=== PATIENT | male | born 1965 | race Caucasian/White ===

== ENCOUNTER 2017-04-05 23:24 | Emergency (ER) | payer MEDICAID, OTHER ==
[~2017-04-05] VITALS: Ht 170.2 cm; Wt 66.4 kg
[~2017-04-05 23:24] MED LIST: SERT50TA12 PO; SULF-168 PO
[2017-04-06 00:05] LABS: BASOPHILS % (AUTO) 0.8 % (0.0-2.0); EOSINOPHILS % (AUTO) 0.6 % (1.0-6.0); HEMATOCRIT 48.7 % (41-53); HEMOGLOBIN 15.5 g/dL (13.5-17.5); LYMPHOCYTES # (AUTO) 3.7 K/uL (1.0-4.8); LYMPHOCYTES % (AUTO) 37.9 % (22.0-44.0); MEAN CORPUSCULAR HEMOGLOBIN 28.8 pg (26.0-34.0); MEAN CORPUSCULAR HGB CONC 31.9 G/dL (31.0-37.0); MEAN CORPUSCULAR VOLUME 90 fL (80-100); MONOCYTES # (AUTO) 0.5 K/uL (0.1-1.0); MONOCYTES % (AUTO) 5.5 % (2.0-9.0); NEUTROPHILS # (AUTO) 5.4 K/uL (1.8-7.7); NEUTROPHILS % (AUTO) 55.2 % (40.0-70.0); PLATELET COUNT (AUTO) 225 K/uL (150-450); RED CELL DISTRIBUTION WIDTH 14.3 % (11.5-14.5); WHITE BLOOD COUNT (AUTO) 9.9 K/uL (4.5-11.0)
[2017-04-06 00:13] LABS: ANION GAP 12 mmol/L (8-16); CALCIUM, TOTAL 8.9 mg/dL (8.8-10.5); CARBON DIOXIDE 25 mmol/L (22-29); CHLORIDE 107 mmol/L (98-107); CREATININE 0.85 mg/dL (0.60-1.30); GLOMERULAR FILTR. RATE CALC > 60 mL/min (>60); POTASSIUM 3.7 mmol/L (3.5-5.1); SODIUM SERUM 144 mmol/L (136-145); UREA NITROGEN, BLOOD 10 mg/dL (7-18)
[2017-04-06 00:19] LABS: ALANINE AMINOTRANSFERASE 78 U/L (12-78); ALBUMIN 4.2 g/dL (3.4-5.0); ASPARTATE AMINOTRANSFERASE 60 U/L (15-37); BILIRUBIN,TOTAL 0.5 mg/dL (0.1-1.0); TOTAL PROTEIN, SERUM 9.1 g/dL (6.4-8.2)
[2017-04-06 06:14] VITALS: BP 110/70
== END 2017-04-06 06:54 | disposition home or self-care (01) ==
LOC: EMS 23:25
DX: F10.229 Alcohol dependence with intoxication, unspecified (principal); F32.9 Major depressive disorder, single episode, unspecified; F17.210 Nicotine dependence, cigarettes, uncomplicated; Y90.8 Blood alcohol level of 240 mg/100 ml or more
CPT/HCPCS: 36415; 80053; 80307; 85025; 99284; G0480

== ENCOUNTER 2017-04-06 17:15 | Emergency (ER) | payer OTHER ==
[~2017-04-06] VITALS: Ht 172.7 cm; Wt 70.5 kg
[2017-04-06 17:25] VITALS: BP 123/90
[2017-04-06 18:44] LABS: BASOPHILS % (AUTO) 0.6 % (0.0-2.0); EOSINOPHILS % (AUTO) 1.1 % (1.0-6.0); HEMATOCRIT 46.1 % (41-53); HEMOGLOBIN 14.8 g/dL (13.5-17.5); LYMPHOCYTES # (AUTO) 1.8 K/uL (1.0-4.8); LYMPHOCYTES % (AUTO) 27.8 % (22.0-44.0); MEAN CORPUSCULAR HEMOGLOBIN 29.2 pg (26.0-34.0); MEAN CORPUSCULAR HGB CONC 32.2 G/dL (31.0-37.0); MEAN CORPUSCULAR VOLUME 91 fL (80-100); MONOCYTES # (AUTO) 0.3 K/uL (0.1-1.0); MONOCYTES % (AUTO) 5.1 % (2.0-9.0); NEUTROPHILS # (AUTO) 4.2 K/uL (1.8-7.7); NEUTROPHILS % (AUTO) 65.4 % (40.0-70.0); PLATELET COUNT (AUTO) 222 K/uL (150-450); RED BLOOD CELL COUNT(AUTO) 5.09 MIL/uL (4.50-5.90); RED CELL DISTRIBUTION WIDTH 14.8 % (11.5-14.5); WHITE BLOOD COUNT (AUTO) 6.4 K/uL (4.5-11.0)
[2017-04-06 19:03] LABS: ANION GAP 12 mmol/L (8-16); CALCIUM, TOTAL 8.5 mg/dL (8.8-10.5); CARBON DIOXIDE 26 mmol/L (22-29); CHLORIDE 107 mmol/L (98-107); CREATININE 0.93 mg/dL (0.60-1.30); GLOMERULAR FILTR. RATE CALC > 60 mL/min (>60); POTASSIUM 3.5 mmol/L (3.5-5.1); SODIUM SERUM 145 mmol/L (136-145); UREA NITROGEN, BLOOD 9 mg/dL (7-18)
[2017-04-06 19:08] LABS: ALANINE AMINOTRANSFERASE 73 U/L (12-78); ASPARTATE AMINOTRANSFERASE 56 U/L (15-37); BILIRUBIN,TOTAL 0.5 mg/dL (0.1-1.0); TOTAL PROTEIN, SERUM 8.3 g/dL (6.4-8.2)
== END 2017-04-06 20:42 | disposition home or self-care (01) ==
LOC: EMS 17:20
DX: F10.229 Alcohol dependence with intoxication, unspecified (principal); F32.9 Major depressive disorder, single episode, unspecified; F17.210 Nicotine dependence, cigarettes, uncomplicated; Y90.6 Blood alcohol level of 120-199 mg/100 ml
CPT/HCPCS: 36415; 80053; 85025; 99284; G0480

== ENCOUNTER 2017-04-07 21:25 | Emergency (ER) | payer OTHER ==
[~2017-04-07] VITALS: Ht 172.7 cm; Wt 77.3 kg
[2017-04-07 21:34] VITALS: BP 121/73
== END 2017-04-08 00:30 | disposition left against medical advice (07) ==
LOC: EMS 21:30
DX: R51 Headache (principal); F17.210 Nicotine dependence, cigarettes, uncomplicated; Z53.21 Procedure and treatment not carried out due to patient leaving prior to being seen by health care provider

== ENCOUNTER 2017-04-08 09:09 | Inpatient (IN) | payer MEDICAID, OTHER ==
[~2017-04-08] VITALS: Ht 172.7 cm; Wt 66.7 kg
[2017-04-08 09:38] LABS: BASOPHILS % (AUTO) 0.9 % (0.0-2.0); EOSINOPHILS % (AUTO) 1.7 % (1.0-6.0); HEMATOCRIT 49.8 % (41-53); HEMOGLOBIN 15.7 g/dL (13.5-17.5); LYMPHOCYTES # (AUTO) 2.7 K/uL (1.0-4.8); LYMPHOCYTES % (AUTO) 37.5 % (22.0-44.0); MEAN CORPUSCULAR HEMOGLOBIN 28.6 pg (26.0-34.0); MEAN CORPUSCULAR HGB CONC 31.6 G/dL (31.0-37.0); MEAN CORPUSCULAR VOLUME 91 fL (80-100); MONOCYTES # (AUTO) 0.5 K/uL (0.1-1.0); MONOCYTES % (AUTO) 7.2 % (2.0-9.0); NEUTROPHILS # (AUTO) 3.8 K/uL (1.8-7.7); NEUTROPHILS % (AUTO) 52.7 % (40.0-70.0); PLATELET COUNT (AUTO) 239 K/uL (150-450); RED BLOOD CELL COUNT(AUTO) 5.49 MIL/uL (4.50-5.90); RED CELL DISTRIBUTION WIDTH 14.8 % (11.5-14.5); WHITE BLOOD COUNT (AUTO) 7.3 K/uL (4.5-11.0)
[2017-04-08 09:58] LABS: ANION GAP -1 mmol/L (8-16); CALCIUM, TOTAL 8.8 mg/dL (8.8-10.5); CARBON DIOXIDE 27 mmol/L (22-29); CHLORIDE 103 mmol/L (98-107); CREATININE 0.72 mg/dL (0.60-1.30); GLOMERULAR FILTR. RATE CALC > 60 mL/min (>60); POTASSIUM 3.4 mmol/L (3.5-5.1); SODIUM SERUM 129 mmol/L (136-145); UREA NITROGEN, BLOOD 9 mg/dL (7-18)
[2017-04-08 10:03] LABS: ALANINE AMINOTRANSFERASE 68 U/L (12-78); ALBUMIN 4.1 g/dL (3.4-5.0); ASPARTATE AMINOTRANSFERASE 49 U/L (15-37); BILIRUBIN,TOTAL 0.4 mg/dL (0.1-1.0); TOTAL PROTEIN, SERUM 8.7 g/dL (6.4-8.2)
[2017-04-08] MEDS ORDERED: SODIUM CHLORIDE 1 GM TABLET PO ONE (11:15)
[2017-04-08] MEDS ORDERED: LORazepam 2 MG TABLET PO PRN (11:45)
[2017-04-08] MEDS ORDERED: HALOPERIDOL 5 MG TABLET PO PRN (11:45)
[2017-04-08] MEDS ORDERED: ZOLPIDEM TARTRATE 10 MG TABLET PO PRN (11:45)
[2017-04-08] MEDS ORDERED: ChlordiazePOXIDE HCL 25 MG CAPSULE PO PRN (12:30)
[2017-04-08 14:58] LABS: ANION GAP 7 mmol/L (8-16); CALCIUM, TOTAL 8.3 mg/dL (8.8-10.5); CARBON DIOXIDE 25 mmol/L (22-29); CHLORIDE 108 mmol/L (98-107); CREATININE 0.79 mg/dL (0.60-1.30); GLOMERULAR FILTR. RATE CALC > 60 mL/min (>60); POTASSIUM 3.8 mmol/L (3.5-5.1); SODIUM SERUM 140 mmol/L (136-145); UREA NITROGEN, BLOOD 8 mg/dL (7-18)
[2017-04-08 17:00] VITALS: BP 115/67
[2017-04-08 17:10] VITALS: BP 115/67
[2017-04-08 18:00] VITALS: BP 121/70
[2017-04-08 19:00] VITALS: BP 110/65
[2017-04-08 20:00] VITALS: BP 105/64
[2017-04-09 00:28] VITALS: BP 121/81
[2017-04-09] MEDS ORDERED: PNEUMOCOCCAL VACCINE POLYVALENT 0.5 ML VIAL [PPSV23] IM ONE (04:45)
[2017-04-09 05:33] VITALS: BP_SYST 126; BP_DIAS 78; BP_DIAS 80
[2017-04-09] MEDS ORDERED: ChlordiazePOXIDE HCL 25 MG CAPSULE PO PRN (07:00)
[2017-04-09 08:01] VITALS: BP 107/59
[2017-04-09] MEDS ORDERED: ChlordiazePOXIDE HCL 25 MG CAPSULE PO SCH (09:00)
[2017-04-09] MEDS ORDERED: LORazepam 2 MG TABLET PO PRN (10:45)
[2017-04-09 11:45] VITALS: BP 104/62
[2017-04-09 16:13] VITALS: BP 116/70
[2017-04-10 00:15] VITALS: BP 118/76
[2017-04-10 00:45] VITALS: BP 118/76
[2017-04-10] MEDS ORDERED: LORazepam 2 MG TABLET PO PRN (07:00)
[2017-04-10] MEDS: LORazepam 2 MG TABLET PO SCH ×2 (08:56→12:04)
[2017-04-10 09:00] VITALS: BP 127/86
[2017-04-10] MEDS ORDERED: SERTRALINE HCL 50 MG TABLET PO SCH (09:00)
[2017-04-10 10:33] VITALS: BP 141/78
[2017-04-10] MEDS ORDERED: SERT50TA12 PO (11:07)
[2017-04-11] MEDS ORDERED: ChlordiazePOXIDE HCL 10 MG CAPSULE PO PRN (07:00)
[2017-04-11] MEDS ORDERED: ChlordiazePOXIDE HCL 10 MG CAPSULE PO SCH (09:00)
[2017-04-12] MEDS ORDERED: ChlordiazePOXIDE HCL 10 MG CAPSULE PO PRN (07:00)
[2017-04-12] MEDS ORDERED: LORazepam 1 MG TABLET PO PRN (07:00)
[2017-04-12] MEDS ORDERED: LORazepam 1 MG TABLET PO SCH (09:00)
[2017-04-13] MEDS ORDERED: LORazepam 1 MG TABLET PO PRN (07:00)
== END 2017-04-10 11:45 | disposition home or self-care (01) | DRG 754 ==
LOC: EEVIPCON 09:24 → EMS 09:24 → 3EI 16:09
PROVIDERS: ADMIT Psychiatry & Neurology Child & Adolescent Psychiatry; ATTEND Psychiatry & Neurology Child & Adolescent Psychiatry
DX: F32.9 Major depressive disorder, single episode, unspecified (principal); E87.1 Hypo-osmolality and hyponatremia; F10.239 Alcohol dependence with withdrawal, unspecified; F10.229 Alcohol dependence with intoxication, unspecified; Y90.8 Blood alcohol level of 240 mg/100 ml or more; E87.6 Hypokalemia
CPT/HCPCS: 99285; G0480

== ENCOUNTER 2017-04-20 18:02 | Inpatient (IN) | payer MEDICAID, OTHER ==
[~2017-04-20] VITALS: Ht 172.7 cm; Wt 67.1 kg
[~2017-04-20 18:02] MED LIST changes: -SULF-168 PO
[2017-04-20 18:34] LABS: BASOPHILS % (AUTO) 0.8 % (0.0-2.0); HEMATOCRIT 46.8 % (41-53); HEMOGLOBIN 15.5 g/dL (13.5-17.5); LYMPHOCYTES # (AUTO) 2.4 K/uL (1.0-4.8); LYMPHOCYTES % (AUTO) 41.3 % (22.0-44.0); MEAN CORPUSCULAR HEMOGLOBIN 30.2 pg (26.0-34.0); MEAN CORPUSCULAR HGB CONC 33.2 G/dL (31.0-37.0); MEAN CORPUSCULAR VOLUME 91 fL (80-100); MONOCYTES # (AUTO) 0.4 K/uL (0.1-1.0); MONOCYTES % (AUTO) 7.3 % (2.0-9.0); NEUTROPHILS # (AUTO) 2.9 K/uL (1.8-7.7); NEUTROPHILS % (AUTO) 49.6 % (40.0-70.0); PLATELET COUNT (AUTO) 257 K/uL (150-450); RED BLOOD CELL COUNT(AUTO) 5.15 MIL/uL (4.50-5.90); RED CELL DISTRIBUTION WIDTH 16.7 % (11.5-14.5); WHITE BLOOD COUNT (AUTO) 5.8 K/uL (4.5-11.0)
[2017-04-20 18:44] LABS: ANION GAP 14 mmol/L (8-16); CALCIUM, TOTAL 8.6 mg/dL (8.8-10.5); CARBON DIOXIDE 25 mmol/L (22-29); CHLORIDE 101 mmol/L (98-107); GLOMERULAR FILTR. RATE CALC > 60 mL/min (>60); POTASSIUM 3.9 mmol/L (3.5-5.1); SODIUM SERUM 140 mmol/L (136-145); UREA NITROGEN, BLOOD 9 mg/dL (7-18)
[2017-04-20 18:49] LABS: ALANINE AMINOTRANSFERASE 173 U/L (12-78); ALBUMIN 3.8 g/dL (3.4-5.0); ASPARTATE AMINOTRANSFERASE 222 U/L (15-37); BILIRUBIN,TOTAL 0.4 mg/dL (0.1-1.0); TOTAL PROTEIN, SERUM 8.5 g/dL (6.4-8.2)
[2017-04-20] MEDS ORDERED: ZOLPIDEM TARTRATE 10 MG TABLET PO PRN (21:15)
[2017-04-20 21:21] VITALS: BP 137/89
[2017-04-21 00:50] LABS: APPEARANCE,URINE CLEAR (CLEAR); GLUCOSE, URINE (UA) NEGATIVE (NEGATIVE); KETONES,URINE NEGATIVE (NEGATIVE); LEUKOCYTE ESTERASE ,URINE NEGATIVE (NEGATIVE); OCCULT BLOOD,URINE NEGATIVE (NEGATIVE); PROTEIN,URINE NEGATIVE (NEGATIVE)
[2017-04-21 00:51] LABS: ADD UA MICROSCOPIC NO
[2017-04-21] MEDS: LORazepam 2 MG TABLET PO PRN ×3 (03:29→17:36)
[2017-04-21] MEDS ORDERED: PNEUMOCOCCAL VACCINE POLYVALENT 0.5 ML VIAL [PPSV23] IM ONE (04:30)
[2017-04-21 04:49] VITALS: BP 137/93
[2017-04-21] MEDS: HALOPERIDOL 5 MG TABLET PO PRN ×2 (08:14→17:36)
[2017-04-21 08:30] VITALS: BP 128/86
[2017-04-21] MEDS ORDERED: ONDANSETRON HCL 4 MG TABLET PO PRN (10:45)
[2017-04-21] MEDS ORDERED: CloNIDine HCL 0.1 MG TABLET PO PRN (10:45)
[2017-04-21 17:00] VITALS: BP 125/76
[2017-04-21 21:00] VITALS: BP 110/72
[2017-04-21] MEDS ORDERED: LORazepam 2 MG TABLET PO PRN (21:00)
[2017-04-21 22:03] VITALS: BP 112/70
[2017-04-21] MEDS: MIRTAZAPINE 15 MG TABLET PO SCH (22:30)
[2017-04-21 23:09] VITALS: BP 115/73
[2017-04-22 00:01] VITALS: BP 129/81
[2017-04-22 05:45] VITALS: BP 136/87
[2017-04-22] MEDS ORDERED: LORazepam 2 MG TABLET PO PRN (07:00)
[2017-04-22 09:00] VITALS: BP 117/71
[2017-04-22] MEDS: PANTOPRAZOLE SODIUM 40 MG DR TABLET PO SCH (09:01)
[2017-04-22] MEDS: LORazepam 2 MG TABLET PO SCH ×4 (09:01→20:09)
[2017-04-22 13:00] VITALS: BP 128/79
[2017-04-22] MEDS: HALOPERIDOL 5 MG TABLET PO PRN (14:45)
[2017-04-22 18:22] VITALS: BP 120/75
[2017-04-22] MEDS: MIRTAZAPINE 15 MG TABLET PO SCH (20:09)
[2017-04-23 08:00] VITALS: BP 132/75
[2017-04-23] MEDS: PANTOPRAZOLE SODIUM 40 MG DR TABLET PO SCH (09:40)
[2017-04-23] MEDS: LORazepam 2 MG TABLET PO SCH ×4 (09:40→20:12)
[2017-04-23] MEDS ORDERED: MIRT15 PO (19:46)
[2017-04-23] MEDS: MIRTAZAPINE 15 MG TABLET PO SCH (20:12)
[2017-04-24] MEDS ORDERED: LORazepam 1 MG TABLET PO PRN (07:00)
[2017-04-24] MEDS ORDERED: LORazepam 1 MG TABLET PO SCH (09:00)
[2017-04-25] MEDS ORDERED: LORazepam 1 MG TABLET PO PRN (07:00)
== END 2017-04-23 21:15 | disposition home or self-care (01) | DRG 751 ==
LOC: EMS 18:03 → 3EI 21:45
PROVIDERS: ADMIT Psychiatry & Neurology Child & Adolescent Psychiatry; ATTEND Psychiatry & Neurology Child & Adolescent Psychiatry
DX: F33.2 Major depressive disorder, recurrent severe without psychotic features (principal); R45.851 Suicidal ideations; K70.10 Alcoholic hepatitis without ascites; I10 Essential (primary) hypertension; F10.229 Alcohol dependence with intoxication, unspecified; K76.9 Liver disease, unspecified; F15.10 Other stimulant abuse, uncomplicated; F12.90 Cannabis use, unspecified, uncomplicated; F17.210 Nicotine dependence, cigarettes, uncomplicated; Z28.21 Immunization not carried out because of patient refusal; Z91.5 Personal history of self-harm; Z59.0 Homelessness; Z82.49 Family history of ischemic heart disease and other diseases of the circulatory system; Z82.5 Family history of asthma and other chronic lower respiratory diseases; Z79.899 Other long term (current) drug therapy
CPT/HCPCS: 87081; 99285; G0480

== ENCOUNTER 2017-05-04 19:20 | Emergency (ER) | payer MEDICAID, OTHER ==
[~2017-05-04] VITALS: Ht 167.6 cm; Wt 61.4 kg
[~2017-05-04 19:20] MED LIST changes: +MIRT15 PO; -SERT50TA12 PO
[2017-05-04 19:32] LABS: BASOPHILS % (AUTO) 0.5 % (0.0-2.0); EOSINOPHILS % (AUTO) 0.3 % (1.0-6.0); HEMATOCRIT 46.6 % (41-53); HEMOGLOBIN 15.6 g/dL (13.5-17.5); LYMPHOCYTES # (AUTO) 1.7 K/uL (1.0-4.8); LYMPHOCYTES % (AUTO) 18.8 % (22.0-44.0); MEAN CORPUSCULAR HEMOGLOBIN 30.8 pg (26.0-34.0); MEAN CORPUSCULAR HGB CONC 33.6 G/dL (31.0-37.0); MEAN CORPUSCULAR VOLUME 92 fL (80-100); MONOCYTES # (AUTO) 0.4 K/uL (0.1-1.0); MONOCYTES % (AUTO) 4.1 % (2.0-9.0); NEUTROPHILS # (AUTO) 6.7 K/uL (1.8-7.7); NEUTROPHILS % (AUTO) 76.3 % (40.0-70.0); PLATELET COUNT (AUTO) 176 K/uL (150-450); RED BLOOD CELL COUNT(AUTO) 5.08 MIL/uL (4.50-5.90); RED CELL DISTRIBUTION WIDTH 17.3 % (11.5-14.5); WHITE BLOOD COUNT (AUTO) 8.8 K/uL (4.5-11.0)
[2017-05-04 19:45] LABS: ANION GAP 13 mmol/L (8-16); CALCIUM, TOTAL 8.8 mg/dL (8.8-10.5); CARBON DIOXIDE 24 mmol/L (22-29); CHLORIDE 102 mmol/L (98-107); CREATININE 0.74 mg/dL (0.60-1.30); GLOMERULAR FILTR. RATE CALC > 60 mL/min (>60); POTASSIUM 3.5 mmol/L (3.5-5.1); SODIUM SERUM 139 mmol/L (136-145); UREA NITROGEN, BLOOD 7 mg/dL (7-18)
[2017-05-04 19:50] LABS: ALANINE AMINOTRANSFERASE 216 U/L (12-78); ALBUMIN 3.9 g/dL (3.4-5.0); ASPARTATE AMINOTRANSFERASE 220 U/L (15-37); BILIRUBIN,TOTAL 0.5 mg/dL (0.1-1.0); TOTAL PROTEIN, SERUM 8.4 g/dL (6.4-8.2)
[2017-05-04 20:39] LABS: RBC MORPHOLOGY COMMENT NORMAL RBC MORPH
[2017-05-05 05:33] VITALS: BP 132/84
== END 2017-05-05 06:21 | disposition home or self-care (01) ==
LOC: EMS 19:24
DX: F10.229 Alcohol dependence with intoxication, unspecified (principal); F32.9 Major depressive disorder, single episode, unspecified; F17.210 Nicotine dependence, cigarettes, uncomplicated; Y90.8 Blood alcohol level of 240 mg/100 ml or more
CPT/HCPCS: 36415; 80053; 80307; 85025; 99284; 99406; G0480

== ENCOUNTER 2019-01-31 15:01 | Inpatient (IN) | payer MEDICAID, OTHER ==
[~2019-01-31] VITALS: Ht 170.2 cm; Wt 61.2 kg
[2019-01-31] MEDS ORDERED: OXYC15TA2 PO (15:26)
[2019-01-31] MEDS ORDERED: IBUPROFEN 600 MG TABLET PO ONE (15:45)
[2019-01-31] MEDS ORDERED: LORazepam 2 MG TABLET PO ONE (15:45)
[2019-01-31 15:58] LABS: BASOPHILS % (AUTO) 0.6 % (0.0-2.0); EOSINOPHILS % (AUTO) 0.6 % (1.0-6.0); HEMATOCRIT 47.7 % (41-53); HEMOGLOBIN 16.3 g/dL (13.5-17.5); LYMPHOCYTES # (AUTO) 2.2 K/uL (1.0-4.8); MEAN CORPUSCULAR HEMOGLOBIN 29.7 pg (26.0-34.0); MEAN CORPUSCULAR HGB CONC 34.1 G/dL (31.0-37.0); MEAN CORPUSCULAR VOLUME 87 fL (80-100); MONOCYTES # (AUTO) 0.6 K/uL (0.1-1.0); MONOCYTES % (AUTO) 7.8 % (2.0-9.0); NEUTROPHILS # (AUTO) 4.4 K/uL (1.8-7.7); PLATELET COUNT (AUTO) 247 K/uL (150-450); RED BLOOD CELL COUNT(AUTO) 5.48 MIL/uL (4.50-5.90); RED CELL DISTRIBUTION WIDTH 13.3 % (11.5-14.5)
[2019-01-31 16:17] LABS: ANION GAP 17 mmol/L (8-16); CALCIUM, TOTAL 9.5 mg/dL (8.8-10.5); CARBON DIOXIDE 23 mmol/L (22-29); CHLORIDE 106 mmol/L (98-107); GLOMERULAR FILTR. RATE CALC > 60 mL/min (>60); GLUCOSE,RANDOM 96 mg/dL (70-110); SODIUM SERUM 146 mmol/L (136-145); UREA NITROGEN, BLOOD 6 mg/dL (7-18)
[2019-01-31 16:22] LABS: ALANINE AMINOTRANSFERASE 72 U/L (12-78); ALBUMIN 4.1 g/dL (3.4-5.0); ALKALINE PHOSPHATASE 115 U/L (46-116); ASPARTATE AMINOTRANSFERASE 43 U/L (15-37); BILIRUBIN,TOTAL 0.7 mg/dL (0.1-1.0)
[2019-01-31] MEDS ORDERED: HydrOXYzine PAMOATE 50 MG CAPSULE PO PRN (17:30)
[2019-01-31] MEDS ORDERED: DIAZEPAM 10 MG TABLET PO PRN (17:30)
[2019-01-31] MEDS ORDERED: LOPERAMIDE HCL 2 MG CAPSULE PO PRN ×2 (17:30)
[2019-01-31] MEDS ORDERED: CYANOCOBALAMIN 1,000 MCG/ML VIAL IM ONE ×2 (17:30)
[2019-01-31] MEDS ORDERED: GuaiFENesin/D-METHORPHAN [SUGAR-FREE] 200-20MG/10 ML SYRUP UDCUP PO PRN ×2 (17:30)
[2019-01-31] MEDS ORDERED: ZOLPIDEM TARTRATE 10 MG TABLET PO PRN (17:30)
[2019-01-31] MEDS ORDERED: THIAMINE HCL 100 MG TABLET PO SCH (20:42)
[2019-01-31 20:45] VITALS: BP 108/74
[2019-01-31] MEDS: THIAMINE HCL 100 MG TABLET PO SCH (21:23)
[2019-01-31] MEDS: HALOPERIDOL 5 MG TABLET PO PRN (21:24)
[2019-01-31 21:45] VITALS: BP 110/68
[2019-01-31] MEDS ORDERED: IBUPROFEN 600 MG TABLET PO PRN (21:45)
[2019-01-31 22:45] VITALS: BP 113/71
[2019-01-31 23:45] VITALS: BP 90/53
[2019-02-01 00:45] VITALS: BP 95/67
[2019-02-01 04:45] VITALS: BP 122/76
[2019-02-01] MEDS ORDERED: MULTIVITAMINS WITH MINERALS, THERAPEUTIC TABLET PO SCH (09:00)
[2019-02-01] MEDS ORDERED: FOLIC ACID 1 MG TABLET PO SCH (09:00)
[2019-02-01] MEDS: FOLIC ACID 1 MG TABLET PO SCH (10:55)
[2019-02-01] MEDS: MULTIVITAMINS WITH MINERALS, THERAPEUTIC TABLET PO SCH (10:55)
[2019-02-01] MEDS: DIAZEPAM 10 MG TABLET PO SCH ×4 (10:55→22:12)
[2019-02-01] MEDS: NICOTINE 21 MG/24 HOUR PATCH TD SCH (10:56)
[2019-02-01] MEDS: THIAMINE HCL 100 MG TABLET PO SCH ×2 (10:56→17:31)
[2019-02-01 15:00] VITALS: BP_SYST 119; BP_SYST 124; BP_DIAS 77
[2019-02-01] MEDS: MIRTAZAPINE 15 MG TABLET PO SCH (22:12)
[2019-02-02 01:08] VITALS: BP 110/65
[2019-02-02] MEDS: DIAZEPAM 10 MG TABLET PO PRN ×2 (01:16→15:18)
[2019-02-02] MEDS: DIAZEPAM 10 MG TABLET PO SCH ×4 (08:26→20:45)
[2019-02-02] MEDS: THIAMINE HCL 100 MG TABLET PO SCH ×2 (08:26→16:22)
[2019-02-02] MEDS: MULTIVITAMINS WITH MINERALS, THERAPEUTIC TABLET PO SCH (08:26)
[2019-02-02] MEDS: HALOPERIDOL 5 MG TABLET PO PRN ×2 (08:26→13:15)
[2019-02-02] MEDS: FOLIC ACID 1 MG TABLET PO SCH (08:26)
[2019-02-02] MEDS: NICOTINE 21 MG/24 HOUR PATCH TD SCH (09:51)
[2019-02-02 09:54] VITALS: BP 110/63
[2019-02-02 09:58] VITALS: BP 110/63
[2019-02-02] MEDS: MIRTAZAPINE 15 MG TABLET PO SCH (20:45)
[2019-02-03] MEDS ORDERED: DIAZEPAM 5 MG TABLET PO PRN (07:00)
[2019-02-03 09:38] VITALS: BP 100/61
[2019-02-03] MEDS: DIAZEPAM 5 MG TABLET PO SCH ×4 (10:11→20:37)
[2019-02-03] MEDS: THIAMINE HCL 100 MG TABLET PO SCH ×2 (10:11→16:36)
[2019-02-03] MEDS: NICOTINE 21 MG/24 HOUR PATCH TD SCH (10:11)
[2019-02-03] MEDS: FOLIC ACID 1 MG TABLET PO SCH (10:11)
[2019-02-03] MEDS: MULTIVITAMINS WITH MINERALS, THERAPEUTIC TABLET PO SCH (10:11)
[2019-02-03 17:58] VITALS: BP 110/66
[2019-02-03 17:59] VITALS: BP 110/66
[2019-02-03] MEDS: MIRTAZAPINE 15 MG TABLET PO SCH (20:37)
[2019-02-04] MEDS ORDERED: DIAZEPAM 5 MG TABLET PO PRN (07:00)
[2019-02-04 07:02] VITALS: BP 106/68
[2019-02-04 08:00] VITALS: BP 112/62
[2019-02-04] MEDS: MULTIVITAMINS WITH MINERALS, THERAPEUTIC TABLET PO SCH (09:41)
[2019-02-04] MEDS: FOLIC ACID 1 MG TABLET PO SCH (09:41)
[2019-02-04] MEDS: THIAMINE HCL 100 MG TABLET PO SCH ×2 (09:41→16:54)
[2019-02-04] MEDS: NICOTINE 21 MG/24 HOUR PATCH TD SCH (09:41)
[2019-02-04 15:22] VITALS: BP 107/68
[2019-02-04] MEDS ORDERED: MULT-1239 PO (15:44)
[2019-02-04] MEDS ORDERED: FOLI1 PO (15:44)
[2019-02-04] MEDS ORDERED: THIA100T67 PO (15:45)
== END 2019-02-04 17:28 | disposition home or self-care (01) | DRG 751 ==
LOC: EMS 15:01 → 3EI 19:00 → B2S 02-02 00:15
PROVIDERS: ADMIT Psychiatry & Neurology Child & Adolescent Psychiatry; ATTEND Psychiatry & Neurology Child & Adolescent Psychiatry
DX: F33.2 Major depressive disorder, recurrent severe without psychotic features (principal); R45.851 Suicidal ideations; E86.0 Dehydration; F12.90 Cannabis use, unspecified, uncomplicated; F15.90 Other stimulant use, unspecified, uncomplicated; Y90.5 Blood alcohol level of 100-119 mg/100 ml; R26.9 Unspecified abnormalities of gait and mobility; G89.29 Other chronic pain; F10.239 Alcohol dependence with withdrawal, unspecified; F41.9 Anxiety disorder, unspecified; F17.210 Nicotine dependence, cigarettes, uncomplicated; Z59.0 Homelessness
CPT/HCPCS: 96372; G0480; J3420